=== PATIENT | female | born 1990 | race Caucasian/White ===

== ENCOUNTER 2021-02-10 05:56 | Inpatient (IN) | payer BC, SELFPAY ==
[2021-02-10] VITALS (51 sets, daily range): BP systolic 73–128; BP diastolic 49–115; PULSE 53–259; RESP 14–16; TEMP 36.2–36.8; O2SAT 100; BMI 29.1
--- NOTE | 2021-02-10 07:30 | LDADM ---
This patient, Sepideh Cruz, was admitted to Labor/Delivery/Recovery 109 on 02/10/21 at 05:56. Plans for labor, pain management and were discussed with patient. Patient/family oriented to hospital policies and general routines including ID bracelet, bed and alarms, visiting hours, pain management, procedures, bathroom and other care routines, personal items, smoking policy, room service/diet and guest tray routines, security routines, and visiting hours. Patient/Family are encouraged to report perceived risks to care and to ask questions if they do not understand what they are told or what they should do. See OBIX for further documentation.
[2021-02-10 07:36] LABS: Basophils Percent Auto 0.2 % (0.2-1.2); Eosinophils Percent Auto 0.2 % (0-4.4); Hematocrit 38.7 % (37.0-47.0); Immature Granulocyte Absolute 0.07 K/mm3 (0.00-0.031); Immature Granulocyte Percent A 0.8 % (0-0.5); Lymphocytes Absolute Auto 1.94 K/mm3 (0.9-3.2); Lymphocytes Percent Auto 21.2 % (18.3-44.2); Mean Corpuscular HGB Conc 33.6 g/dl (32-36); Mean Corpuscular Hemoglobin 30.4 pg (26-34); Mean Corpuscular Volume 90.4 fl (80-100); Mean Platelet Volume 8.5 fl (7.4-10.4); Monocytes Absolute Auto 0.9 K/mm3 (0.1-0.6); Monocytes Percent Auto 9.4 % (2.6-8.5); Neutrophils Absolute Auto 6.2 K/mm3 (1.3-6.7); Neutrophils Percent Auto 68.2 % (45.5-73.1); Platelet Count Result 220 k/mm3 (150-375); Red Blood Count 4.28 M/mm3 (4.2-5.4); Red Cell Distribution Width 13.3 % (11.5-14.5); White Blood Count 9.1 K/mm3 (4.5-10.0)
--- NOTE | 2021-02-10 08:03 | P.PNAN_ITS ---
Anes - Eval Pre Procedure Procedure: Labor epidural Date/Time: 02/10/21 08:03 Surgeon: Yudy Preop Diagnosis: Abd pain with contractions Pre Op Diagnosis: Induction of Labor Patient Data Age: 30 Gender: F Height: 5 ft 4 in Weight: 77 kg Last Vital Signs Pulse 79 02/10/21 07:45 BP 117/72 02/10/21 07:45 Allergies Allergy/AdvReac Type Severity Reaction Status Date / Time No Known Allergies Allergy Verified 01/22/21 12:38 Home Medications Medication Instructions Recorded Confirmed Type prenat.vits,tj,iaa-dbds-bqvnv 1 tablet PO DAILY 01/22/21 01/22/21 History [ #2] Laboratory Tests 02/10/21 02/10/21 07:08 07:08 WBC 9.1 K/mm3 K/mm3 (4.5-10.0) RBC 4.28 M/mm3 M/mm3 (4.2-5.4) Hgb 13.0 g/dL g/dL (12.0-15.0) Hct 38.7 % % (37.0-47.0) MCV 90.4 fl fl (80-100) MCH 30.4 pg pg (26-34) MCHC 33.6 g/dl g/dl (32-36) RDW 13.3 % % (11.5-14.5) Plt Count 220 k/mm3 k/mm3 (150-375) MPV 8.5 fl fl (7.4-10.4) Immature Gran % (Auto) 0.8 % H % (0-0.5) Neut % (Auto) 68.2 % % (45.5-73.1) Lymph % (Auto) 21.2 % % (18.3-44.2) [place] % (Auto) 9.4 % H % (2.6-8.5) Eos % (Auto) 0.2 % % (0-4.4) Baso % (Auto) 0.2 % % (0.2-1.2) Lymph # (Auto) 1.94 K/mm3 K/mm3 (0.9-3.2) [place] # (Auto) 0.9 K/mm3 H K/mm3 (0.1-0.6) Eos # (Auto) 0.0 K/mm3 K/mm3 (0-0.3) Baso # (Auto) 0.0 K/mm3 K/mm3 (0.0-0.1) Abs Immat Gran (auto) 0.07 K/mm3 H K/mm3 (0.00-0.031) Absolute Neuts (auto) 6.2 K/mm3 K/mm3 (1.3-6.7) Absolute Nucleated RBC 0.0 K/mm3 K/mm3 (0.0-0.012) Nucleated RBC % 0.0 % % (0.0-0.2) RPR Pending Patient hx anesthesia problems: none Family hx anesthesia problems: none [facility] Past Medical History Medical History Overweight (BMI 25.0-29.9) Family History Family History Other Unknown family medical history Social History Social History Smoking status: Never smoker Substance use: never Spiritual care concerns: No Exam Day of Procedure 02/10/21 08:03 Patient weight: overweight Airway: Mallampati scale class II Neurological: alert and oriented
[2021-02-10] MEDS: OXYTOCIN 30 UNITS/NS 500 ML 30 UNITS/500 ML BAG IV CONT (08:07)
[2021-02-10] MEDS: LACTATED RINGERS 1,000 ML 125 ML IV CONT ×2 (08:07→13:53)
--- NOTE | 2021-02-10 08:45 | WPDOBADMIT ---
Obstetrics - Admit Note Admission Note: record reviewed. Additions to the history and/or subsequent changes in the physical findings follow. 30 y/o at 39 weeks here for induction of labor. GBS neg. AVSS NST reactive TOCO: contraction irregular ABD soft, nontender, gravid, vertex EXT nontender Cervix 4/50/-2. AROM with clear fluid. Vertex. A: IUP at term with favorable cervix. P: Oxytocin. Anticipate .
--- NOTE | 2021-02-10 12:55 | PM.OBPNLAB ---
Pain Control Date/time seen: 02/10/21 3455 Comments: Feeling more pain. Would like epidural. Pelvic Exam Dilation (cm): 6 Effacement (%): 80 Contractions Contraction pattern: Regular Status status: Category l Assessment and Plan Comments: Continue labor.
[2021-02-10] MEDS: ONDANSETRON INJ 4 MG/2 ML VIAL IV PUSH (13:02)
--- NOTE | 2021-02-10 17:42 | PM.OBPRVD ---
OB - Delivery Note Procedure Delivery date: 02/10/21 Procedure: Induction of labor with Induction method: AROM and per pitocin protocol Delivery monitor: external uterine and internal FHT Route of delivery: Laceration Description: Periurethral and Perineal - 1st Degree Delivery repair: vicryl (3-0) Specimen: Yes (3-0) Quantitative Blood Loss (ml): 95 Anesthesia type: Epidural Disposition: PACU Complications: None Narrative: 30 y/o at 39 weeks gestation who presented to the hospital for induction of labor. Oxytocin was administered intravenously. Amniotomy was performed with return of clear fluid. She received an epidural for pain control. Her labor progressed and her cervix dilated completely. She pushed with good effort and delivered the infant's head to the perineum, followed by the body. The nose and mouth were bulb suctioned. After a delay, the cord was clamped and cut. The was handed off the field. Cord blood was collected. The placenta delivered spontaneously and was grossly normal in appearance. The usual 3 vessel cord was noted. A first degree midline perineal laceration, and bilateral periurethral lacerations were sustained. These were reapproximated using 3 0 Vicryl in interrupted figure of eight fashion. Excellent hemostasis resulted as did excellent reapproximation of the normal anatomy. Needle and instrument counts were correct. The patient was taken to recovery room in stable condition. The went to the nursery in stable condition. I was present and scrubbed for the entire delivery. [place] Baby Date of : 02/10/21 Time of : 17:18 Weeks of gestation at delivery: 39 Infant gender: Female Weight (pounds): 7 Weight (ounces): 4 presentation: vertex position: Right Occiput Anterior Placenta delivery description: Spontaneous and Normal Configuration cord vessel description: 3 Vessels and Delayed Cord Clamping score one minute: 9 score five minutes: 9
--- NOTE | 2021-02-10 17:52 | PM.OBDSVD ---
DS: Admitting Diagnosis Admitting Diagnosis Admitting Diagnosis: IUP at 39 weeks DS: Discharge Diagnosis Discharge Diagnosis (1) (normal spontaneous vaginal delivery): Code(s): O80 - Encounter for full-term uncomplicated delivery Status: Acute OB - DS: Summary OB Procedures : None OB Procedures Intrapartum: Spontaneous Vag Delivery OB Procedures: : None DS: Data Data Completed and Pending Labs on day of discharge: Labs from last 24 hours 02/10/21 02/10/21 02/10/21 11:22 07:08 07:08 WBC 9.1 RBC 4.28 Hgb 13.0 Hct 38.7 MCV 90.4 MCH 30.4 MCHC 33.6 RDW 13.3 Plt Count 220 MPV 8.5 Immature Gran % (Auto) 0.8 H Neut % (Auto) 68.2 Lymph % (Auto) 21.2 [place] % (Auto) 9.4 H Eos % (Auto) 0.2 Baso % (Auto) 0.2 Lymph # (Auto) 1.94 [place] # (Auto) 0.9 H Eos # (Auto) 0.0 Baso # (Auto) 0.0 Abs Immat Gran (auto) 0.07 H Absolute Neuts (auto) 6.2 Absolute Nucleated RBC 0.0 Nucleated RBC % 0.0 RPR Pending Blood Type O Positive Antibody Screen Negative Discharge Plan Discharge Attending physician on discharge: Wander Jimenes Consulting providers: Boris Alonso Discharging Clinician: Wander Jimenes Patient Disposition: Home, Self-Care Activity: pelvic rest Diet: regular Discharge Instructions: Education: Mom and Baby Guide Given to: Mother Follow-Up: Call your delivering provider's office for an appointment to be seen in: 6 Weeks Mom and baby should come to the [facility] for the follow-up appointment. Appointment Date/Time: February 14, 2021 at 11:00 am What to expect at your follow-up visit: Blood Pressure Check Physical Assessment Call [phone] if you are unable to keep your appointment time. BREAST CARE: * Wear a snug supportive bra. * For engorgement discomfort: Breast Feeding: * Apply warm moist washcloths * Express milk as needed to relieve engorgement * Wear loose clothing * For sore nipples: * Identify correct latch-on * Apply warm moist washcloths before and after nursing * Air dry nipples after nursing * May apply Lansinoh cream to nipples EPISIOTOMY/PERINEAL CARE: * Until bleeding stops, use your francis bottle after urinating * Change your pad frequently throughout the day * You may take sitz baths several times a day (fill your bathtub with warm water and soak for 20 minutes.) Do NOT bathe in the water * No tub baths until seen by your physician - You may shower ACTIVITY: * Rest as much as possible. * Do not exercise or lift anything heavier than your baby (such as laundry or other children.) * Avoid stairs or driving as much as possible. * Do not put anything into the vagina. No douching, tampons, or sexual activity until seen by physician. NOTIFY PHYSICIAN IF YOU HAVE ANY QUESTIONS OR IF ANY OF THE FOLLOWING SYMPTOMS OCCUR: * If your vaginal area becomes red, swollen, or more painful than what you have experienced in the hospital. * If your vaginal bleeding becomes foul smelling. * If your vaginal bleeding becomes more heavy than a period or if your bleeding changes from pink to bright red. However, you may pass an occasional walnut-sized clot once or twice for the first week . * If you experience a sharp, shooting pain in your calves. * If you discover a hard, reddened area on your breast or if you experience flu-like symptoms. DIET: * Eat regular, well-balanced meals. * Drink plenty of fluids daily. If , drink to thirst. Call or return if temperature above 100.4? F, increased abdominal pain, increased vaginal bleeding or any new problems. Patient Instructions: Vaginal Delivery (DC) Stand Alone Forms: General Discharge Information Follow-up/Referrals: Wander Jimenes MD [Physician] - 6 Weeks Discharg
[2021-02-10] MEDS: OXYTOCIN 30 UNITS/NS 500 ML 30 UNITS/500 ML BAG 125 UNITS IV CONT (18:00)
[2021-02-10] MEDS: IBUPROFEN 600 MG TABLET PO (19:16)
[2021-02-10] MEDS: BENZOCAINE 20% AER SPR (*SP) 56 GM CAN 1 SPRAY TOPICAL (19:16)
[2021-02-10] MEDS: WITCH HAZEL 40 PADS 1 PAD TOPICAL (19:16)
--- NOTE | 2021-02-10 19:50 | OBPPTRN ---
Patient transferred to post room #281 via wheelchair. Support person present. Oriented to unit, room, information board, rooming in, admission packet and security measures. Patient verbalizes understanding. with patient.
--- NOTE | 2021-02-10 23:45 | PC.NURSE ---
Pt complains of MCDONALD when sitting/standing and states it feels better when she lays flat on her back.
[2021-02-10] MEDS: ACETAMINOPHEN 325 MG TABLET 650 MG PO (23:46)
[2021-02-11 03:50] VITALS: BP 109/69; PULSE 67; RESP 14; TEMP 36.3; O2SAT 100
[2021-02-11] MEDS: IBUPROFEN 600 MG TABLET PO ×3 (03:54→19:58)
[2021-02-11 05:37] LABS: Hematocrit 33.2 % (37.0-47.0); Hemoglobin 11.1 g/dL (12.0-15.0)
[2021-02-11 08:00] VITALS: BP 131/53; PULSE 90; RESP 16; TEMP 37; O2SAT 99
--- NOTE | 2021-02-11 08:24 | WPDANLDPN2 ---
Anes-Prog Note L&D Date/Time: 02/11/21 08:24 Comfortable throughout: labor Neuraxial method: epidural Epidural/Spinal procedure site: clean & non-tender Neuro status: Neuro function grossly intact. Cardiovascular status: normal Respiratory status: normal Airway patency: baseline Mental status: baseline Post-Op hydration status: normal Vital Signs: Last Vital Signs Temp 36.3 C L 02/11/21 03:50 Pulse 67 02/11/21 03:50 Resp 14 02/11/21 03:50 BP 109/69 02/11/21 03:50 Pulse Ox 100 02/11/21 03:50 Pain score (VAS): none I/O: Intake & Output 02/10/21 02/11/21 02/11/21 23:59 07:59 15:59 Output Total 158 Balance -158 Patient feedback: Patient satisfied with anesthetic care.
[2021-02-11] MEDS: MULTIVIT/MIN/PREN/FOL AC/IRON TABLET 1 TAB PO (08:49)
[2021-02-11] MEDS: ACETAMINOPHEN 325 MG TABLET 650 MG PO ×3 (08:50→23:25)
[2021-02-11 11:07] LABS: Rapid Plasma Reagin Non-Reactive (NonReactive)
[2021-02-11 12:30] VITALS: BP 114/57; PULSE 65; RESP 16; TEMP 37; O2SAT 100
[2021-02-11 16:15] VITALS: BP 106/66; PULSE 69; RESP 20; TEMP 37; O2SAT 100
[2021-02-11 19:55] VITALS: BP 111/60; PULSE 64; RESP 16; TEMP 36.3; O2SAT 100
[2021-02-11] MEDS: DOCUSATE SODIUM 100 MG CAPSULE PO (23:25)
[2021-02-12] MEDS: IBUPROFEN 600 MG TABLET PO (04:14)
[2021-02-12 08:00] VITALS: BP 124/72; PULSE 64; PULSE 80; RESP 16; RESP 18; TEMP 37.1; O2SAT 100
--- NOTE | 2021-02-13 08:40 | WPDANESEPPF ---
Anes - Initial Pre Proc Eval Date/Time: 02/13/21 08:40 Surgeon: Wander Jimenes MD Pre Op Diagnosis: Induction of Labor Patient Data Age: 30 Gender: F Height: 5 ft 4 in Weight: 77 kg Last Vital Signs Temp 37.1 C 02/12/21 08:00 Pulse 80 02/12/21 08:00 Resp 18 02/12/21 08:00 BP 124/72 02/12/21 08:00 Pulse Ox 100 02/12/21 08:00 Allergies Allergy/AdvReac Type Severity Reaction Status Date / Time No Known Allergies Allergy Verified 01/22/21 12:38 Home Medications Medication Instructions Recorded Confirmed Type prenat.vits,tj,jtf-eycw-pgude 1 tablet PO DAILY 01/22/21 01/22/21 History ibuprofen 600 mg PO Q6H PRN #30 tablet 02/10/21 Rx Patient hx anesthesia problems: none Family hx anesthesia problems: none PMFSH Past Medical History Medical History Overweight (BMI 25.0-29.9) Family History Family History Other Unknown family medical history Social History Social History Smoking status: Never smoker Substance use: never Spiritual care concerns: No Anes - Eval Final PreProcedure Day of Procedure 02/13/21 08:40 Patient weight: overweight Heart: regular rate and rhythm Lungs: clear to auscultation Airway: Mallampati scale class II Neurological: alert and oriented ASA classification: II Anesthetic plan: proceed Other findings: will do blood patch Informed Consent: The patient's anesthetic plan and its attendant risks and benefits were discussed with the patient/family/POA. Questions were solicited and answers provided to the satisfaction of the patient/family/POA.
--- NOTE | 2021-02-13 08:41 | P.PCNANE_ITS ---
Anes - Epidural Blood Patch PN Date/Time: 02/13/21 08:41 Consent: I have discussed with the patient/family/POA, the rationale of a lumbar epidural autologous blood patch for the treatment of post-dural puncture headache (spinal headache), including associated potential risks, benefits, comp lications and side effects. I have also discussed more conservative treatment options such as intravenous hydration, caffeine and non-prescription analgesics. The patient/family/POA, understand(s) and wish(es) to proceed with epidural autologous blood patch as treatment for the patient's post-dural puncture headache. Time-Out: A pre-procedural Time-Out was completed immediately before starting the procedure and confirmed: Patient Identification, Site, Procedure, Patient Position and the Availability of Requisite Equipment. Epidural Insertion Note Patient position: sitting Skin prep: chlorhexidine Needle: 18 gauge Tuohy-Schliff Technique: loss of resistance Skin anesthesia: lidocaine 1% Observations: tolerated well and other (20 cc autologous blood from left ac in 3cc increments instilled sterile headache gone ) Complications: none
[2021-02-14 11:51] VITALS: BP 117/77; PULSE 72; RESP 18; TEMP 36.8; O2SAT 100
== END 2021-02-12 10:10 | disposition home or self-care (01) | DRG 807 ==
LOC: ANHLDR 17:53 → ANHOB2 02-11 06:52 → ANHLDR 02-14 12:28 → ANHOB2 02-14 12:28
PROVIDERS: Admitting Provider Obstetrics & Gynecology; Visit Provider Student in an Organized Health Care Education/Training Program
DX: O70.0 First degree perineal laceration during delivery (principal); Z37.0 Single live birth; Z3A.39 39 weeks gestation of pregnancy; O71.82 Other specified trauma to perineum and vulva
CPT/HCPCS: 36415; 85014; 85018; 85025; 86592; 86850; 86900; 86901; A9270; J2405; J2590; J2795; J7120

== ENCOUNTER 2021-02-13 07:30 | Outpatient (CLI) | payer BC, SELFPAY ==
[2021-02-13 07:44] VITALS: BP 123/79; PULSE 57
--- NOTE | 2021-02-13 07:45 | PC.NURSE ---
Pt arrived with c/o headache starting 02/11 mid day and gradually getting worse, states it is better when she lays flat. Has some upper back pain that may or may not be related. States she is light sensitive, tried medication and caffeine at home.
[2021-02-13 08:35] VITALS: BP 129/81; PULSE 62
--- NOTE | 2021-02-13 08:40 | PN_ITS ---
This report was moved to the correct visit, [id number] on 02/17/21. Original report was signed by Boris Alonso MD on 02/13/21 0841. Anesthesiology Progress Note Signed Anes - Initial Pre Proc Eval Date/Time: 02/13/21 08:40 Surgeon: Wander Jimenes MD Pre Op Diagnosis: Induction of Labor Patient Data Age: 30 Gender: F Height: 5 ft 4 in Weight: 77 kg Last Vital Signs Temp 37.1 C 02/12/21 08:00 Pulse 80 02/12/21 08:00 Resp 18 02/12/21 08:00 BP 124/72 02/12/21 08:00 Pulse Ox 100 02/12/21 08:00 Allergies Allergy/AdvReac Type Severity Reaction Status Date / Time No Known Allergies Allergy Verified 01/22/21 12:38 Home Medications Medication Instructions Recorded Confirmed Type prenat.vits,tj,tvd-beoj-fdbnq 1 tablet PO DAILY 01/22/21 01/22/21 History ibuprofen 600 mg PO Q6H PRN #30 tablet 02/10/21 Rx Patient hx anesthesia problems: none Family hx anesthesia problems: none PMFSH Past Medical History Medical History Overweight (BMI 25.0-29.9) Family History Family History Other Unknown family medical history Social History Social History Smoking status: Never smoker Substance use: never Spiritual care concerns: No Anes - Eval Final PreProcedure Day of Procedure 02/13/21 08:40 Patient weight: overweight Heart: regular rate and rhythm Lungs: clear to auscultation Airway: Mallampati scale class II Neurological: alert and oriented ASA classification: II Anesthetic plan: proceed Other findings: will do blood patch Informed Consent: The patient's anesthetic plan and its attendant risks and benefits were discussed with the patient/family/POA. Questions were solicited and answers provided to the satisfaction of the patient/family/POA. This dictation may have been done utilizing a voice recognition system. Attempts have been made to correct errors. However, there may be uncorrected grammatical, spelling, and recognition errors present. Report Initialized date/time: Boris Alonso MD 02/13/21840 Electronically signed by: Boris Alonso MD 02/13/21840 [facility]
--- NOTE | 2021-02-13 08:41 | MISC_ITS ---
This report was moved to the correct visit, [id number] on 02/17/21. Original report was signed by Boris Alonso MD on 02/13/21842. Anesthesia Procedure Note Signed Anes - Epidural Blood Patch PN Date/Time: 02/13/21 08:41 Consent: I have discussed with the patient/family/POA, the rationale of a lumbar epidural autologous blood patch for the treatment of post-dural puncture headache (spinal headache), including associated potential risks, benefits, complications and side effects. I have also discussed more conservative treatment options such as intravenous hydration, caffeine and non-prescription analgesics. The patient/family/POA, understand(s) and wish(es) to proceed with epidural autologous blood patch as treatment for the patient's post-dural puncture headache. Time-Out: A pre-procedural Time-Out was completed immediately before starting the procedure and confirmed: Patient Identification, Site, Procedure, Patient Position and the Availability of Requisite Equipment. Epidural Insertion Note Patient position: sitting Skin prep: chlorhexidine Needle: 18 gauge Tuohy-Schliff Technique: loss of resistance Skin anesthesia: lidocaine 1% Observations: tolerated well and other (20 cc autologous blood from left ac in 3cc increments instilled sterile headache gone ) Complications: none This dictation may have been done utilizing a voice recognition system. Attempts have been made to correct errors. However, there may be uncorrected grammatical, spelling, and recognition errors present. Report Initialized date/time: Boris Alonso MD 02/13/21842 Electronically signed by: Boris Alonso MD 02/13/21 0843 MTDD
[2021-02-13 08:45] VITALS: BP 118/70; PULSE 52
[2021-02-13 09:00] VITALS: BP 111/64; PULSE 58
[2021-02-13 09:15] VITALS: BP 122/79; PULSE 50
--- NOTE | 2021-02-13 09:41 | PC.NURSE ---
See Anesthesia note on account [id number] for 02/13/21 regarding blood patch.
== END 2021-02-13 09:45 | disposition home or self-care (01) ==
LOC: ANHOBOP 07:33 → ANHOBPP 07:33
PROVIDERS: Visit Provider Obstetrics & Gynecology
DX: O89.4 Spinal and epidural anesthesia-induced headache during the puerperium (principal)
CPT/HCPCS: 62273; 99199

== ENCOUNTER 2025-04-25 14:58 | Emergency (ER) | payer OTHER, SELFPAY ==
--- NOTE | 2025-04-25 14:59 | ED.URI ---
HPI - URI/Sore Throat General Chief Complaint: Upper Respiratory Infection Stated Complaint: Cough Time Seen by Provider: 04/25/25 14:59 Source: patient Mode of arrival: ambulatory Limitations: no limitations History of Present Illness HPI Narrative: Bruna is a 34-year-old female patient presenting to the clinic today with complaints of a sinus congestion and cough x11 days. She reports she started taking Augmentin yesterday and states that her symptoms have improved but she feels as though she has chest congestion with a productive cough. Sinus pressure has somewhat improved. Denies any chest pain or shortness of breath currently. Denies any fevers, chills, body aches. Has been taking mjkw-xug-dyvronq Mucinex, Tylenol, and ibuprofen Related Data Home Medications ?Medication ?Instructions ?Recorded ?Confirmed ?Last Taken ?Type escitalopram oxalate 20 mg tablet mg 04/25/25 Unknown History Allergies Allergy/AdvReac Type Severity Reaction Status Date / Time No Known Allergies Allergy Verified 04/25/25 15:00 Review of Systems Review of Systems: Pertinent positives per HPI. Patient denies any fever, chills, rash, headache, visual changes, dizziness, sore throat, shortness of breath, chest pain, palpitations, nausea, vomiting, diarrhea, constipation, abdominal pain, or any urinary issues. PMFSH Past Medical History Medical History Overweight (BMI 25.0-29.9) Family History Family History Other Unknown family medical history Social History Social History Smoking status: Never smoker Substance use: never Spiritual care concerns: No Comments At the time of my signature, I reviewed and agree with the nursing past medical, surgical, social, and family history. There is no relevant family history pertinent to the patient complaint. Exam Narrative: General: Well-developed, well nourished, in no apparent distress Head: Normocephalic, atraumatic Eyes: Pupils equally round and reactive to light bilaterally, EOM intact, sclera and conjunctive clear, no discharge, lids normal Ears: TMs intact and congested, ear canals clear, no drainage, grossly hearing normal. Nose: Nares patent, clear nasal discharge, moderate inflammation, maxillary sinus tenderness. Mouth: Oropharynx red without lesions or masses, good dentition, MMM. Neck: Supple, trachea midline, no enlargement of anterior or posterior cervical nodes, no thyroid masses or goiter palpable. Cardio: Regular rate and rhythm, s1 and s2 normal, no murmur appreciated. Resp: Clear to auscultation bilaterally anteriorly and posteriorly, no rhonchi, rales, wheezing or rubs Course Course Emergency Course: Portions of this record may have been created with voice recognition software. Level of Care: Express Care Visit Vital Signs Vital signs: Vital Signs Temperature 36.6 C 04/25/25 15:06 Pulse Rate 79 04/25/25 15:06 Respiratory Rate 18 04/25/25 15:06 Blood Pressure 127/72 04/25/25 15:06 Pulse Oximetry 100 04/25/25 15:06 Oxygen Delivery Room Air 04/25/25 15:06 Temperature 36.6 C 04/25/25 15:06 Pulse Rate 79 04/25/25 15:06 Respiratory Rate 18 04/25/25 15:06 Blood Pressure 127/72 04/25/25 15:06 Pulse Oximetry 100 04/25/25 15:06 Oxygen Delivery Room Air 04/25/25 15:06 Vital signs reviewed MDM - URI/Sore Throat MDM Narrative Medical decision making narrative: At the time of visit patient is resting comfortably on the exam table. Patient appears to be nontoxic. complaints of a sinus congestion and cough x11 days. She reports she started taking Augmentin yesterday and states that her symptoms have improved but she feels as though she has chest congestion with a productive cough. Sinus pressure has somewhat improved. Denies any chest pain or shortness of breath currently. Denies any fevers, chills, body aches. Has been taking fedw-woe-prkmgyn Mucinex, Tylenol, and ibuprofen. On exam patient has clear nasal drainage, moderate sinus/nasal congestion, tenderness to palpation over the maxilla. Lung sounds are clear. Productive wet cough. Plan: I suspect patient has sinusitis. Prescription for prednisone was sent into the pharmacy to help with the congestion. Supportive measures were discussed with the patient and they voiced understanding discharge instructions and agrees to treatment plan. Return precautions reviewed Differential Diagnosis Differential diagnosis: Likely upper respiratory infection, otitis media, sinusitis, viral infection, bronchitis, influenza and pharyngitis Discharge Plan Discharge Clinical Impression: Sinusitis Qualifiers: Sinusitis location: frontal Chronicity: acute Recurrence: non-recurrent Qualified Code(s): J01.10 - Acute frontal sinusitis, unspecified Patient Disposition: Home Condition: Stable Instructions: Antibiotic Form, Rhinosinusitis (ED) Additional Instructions: Continue Augmentin as prescribed Start prednisone as directed Increase fluids and stay well hydrated May take Tylenol or motrin as directed on bottle for pain/fever May use Flonase 1 spray in each nare daily May take OTC antihistamines such as Zyrtec or Claritin daily as directed on bottle May apply Vicks vapor rub to chest to open sinuses Sinus rinses for congestion Cepacol spray, cough drops, throat lozenges, warm tea with honey/lemon, gargle salt water to soothe throat BRAT diet for diarrhea Clear liquids x 24 hours then advance as tolerated for nausea/vomiting Go to the ED if you develop a worsening in your condition- high fever not controlled by Tylenol or Motrin, dehydration, weakness, lethargy, shortness of breath, or chest pain. Follow up with your PCP in 3-5 days if symptoms persist. Patient Language: Com[place]an Prescriptions: New prednisone 20 mg tablet 40 mg PO DAILY 5 Days Qty: 10 0RF No Action escitalopram oxalate 20 mg tablet ibuprofen 600 mg tablet 600 mg PO Q6H PRN (Reason: cramps) Qty: 30 0RF amoxicillin-pot clavulanate [Augmentin] 500-125 mg tablet 1 tablet PO Q12H Qty: 14 0RF Follow-up/Referrals: Lloyd,DO Yannick [Primary Care Provider] Time of Disposition: 15:12 Quality NIHSS Nursing Documentation ED NIHSS nursing documentation: reviewed/agree
--- OUTSIDE RECORDS SUMMARY | 2025-04-25 15:01 | XMS_ITS | Patient Health Record ---
Author Organization [facility] Address [address] [facility] [address] [place] [address] Care Team Providers Care Area Captain Name Role Phone Matilda Peralta Unavailable [phone] Reason For Referral No Information Medications Medication SIG (Take, Route, Frequency, Duration) Notes Start Date End Date Status Fluconazole 150 MG Tablet Oral Active Chlorhexidine Gluconate 0.12% Solution Mouth/Throat Active Estradiol 2 MG Tablet Oral Active Amoxicillin-Pot Clavulanate 875-125 MG Tablet Oral Active Cefdinir 300 MG Capsule Oral Active HYDROcodone-Acetaminophen 5-325 MG Tablet Oral Active Amoxicillin 500 MG Capsule Oral Active Social History Social History Additional Details Category Social Info Options Details Migrated Social History Migrated Social History Tobacco Years: Never smoker 06/22/2022 Plan Of Treatment No Information Insurance Providers Payer Name Payer Address Payer Phone Subscriber Number Group Number Insured Name Patient Relationship to Insured Coverage Start Date Coverage End Date [facility] [address] [place] [address] [id number] CHEL GARCIA Spouse - patient is the spouse of the insured
--- OUTSIDE RECORDS SUMMARY | 2025-04-25 15:01 | XMS_ITS | Clinical Summary ---
Author Organization [facility] Address [address] [place] [address] Care Team Providers Care Senior Gis Analyst Name Role Phone Unavailable Primary Care Provider Unavailabl e Source Comments [facility],non-owned Affiliates and Associated Physician Practices is amultiple site organization consisting of ambulatory clinics and hospital sitesin [place], [place], [place] and [place]. This disclosure is being madepursuant to the Care Everywhere program and may not contain all information available regarding this patient. Last updated 18.[facility] Allergies No known active allergies Medications * Be aware that medications may not be up to date on this document. Alwaysverify current medications with the patient. benzonatate (TESSALON) 200 MG capsule Take 1 capsule by mouth 3 times daily as needed for Cough 30 capsule 8 Active Additional Information Patient not taking.Reported on 06/09/2020 Vit-Fe Fumarate-FA ( VITAMIN PO) Active Active Problems Problem Noted Date Diagnosed Date Encounter for nuchal translucency testing 2017 Family History Relation Name Status Comments Father Alive Mother Alive Social History Tobacco Use Types Packs/Day Years Used Date Smoking Tobacco: Former Cigarettes Alcohol Use Standard Drinks/Week Comments Yes 0 (1 standard drink = 0.6 oz pur e alcohol) Comments Unknown Sex and Gender Information Value Date Recorded Sex Assigned at Not on file Legal Sex Female 7:44 AM UPPER TIER Gender Identity Not on file Sexual Orientation Not on file Occupation Industry Job Start Date Job End Date student Not on file Not on file Not on file Last Filed Vital Signs Vital Sign Reading Time Taken Comments Blood Pressure 128/80 06/09/2020 11:29 AM CDT Pulse 78 06/09/2020 11:29 AM CDT Temperature 36.7 C (98.1 F) 06/09/2020 11:29 AM CDT Respiratory Rate 16 06/09/2020 11:29 AM CDT Oxygen Saturation 98% 06/09/2020 11:29 AM CDT Inhaled Oxygen Concentration - - Weight 59 kg (130 lb) 06/09/2020 11:29 AM CDT Height 162.6 cm (5' 4) 06/09/2020 11:29 AM CDT Body Mass Index 22.31 06/09/2020 11:29 AM CDT Plan of Treatment Health Maintenance Due Date Last Done Comments HIV SCREENING 2006 HEPATITIS C SCREENING 09/05/2009 DTAP/TDAP/TD VACCINES (1 - Tdap) 2010 HEPATITIS B VACCINE (1 of 3 - 19+ 3-dose series) 2010 HPV VACCINE (1 - 3-dose SCDM series) 2018 COVID-19 VACCINE (1 - 2023-2 5 season) 2024 DEPRESSION SCREENING 09/03/2024 INFLUENZA VACCINE (#1) 2025 ZOSTER VACCINE (1 of 2) 2041 HIB VACCINE Aged Out No longer eligi ble based on patient's age to complete this topic MENINGOCOCCAL (Group B) VACC INE SHARED DECISION-MAKING Aged Out No longer eligibl e based on patient's age to complete this topic MENINGOCOCCAL GROUPS A/C/Y/W VACCINE Aged Out No longer eligible b ased on patient's age to complete this topic PNEUMOCOCCAL VACCINE Aged Out No long er eligible based on patient's age to complete this topic Insurance MEDICA[place] [facility] Address: [address] [place] [address]
[2025-04-25 15:06] VITALS: BP 127/72; PULSE 79; RESP 18; TEMP 36.6; O2SAT 100
== END 2025-04-25 15:16 | disposition home or self-care (01) ==
PROVIDERS: Emergency Provider Nurse Practitioner Family; PCP Student in an Organized Health Care Education/Training Program
DX: J01.10 Acute frontal sinusitis, unspecified (principal)
CPT/HCPCS: 99213; G0463

== ENCOUNTER 2025-07-13 14:37 | Observation (INO) | payer OTHER, SELFPAY ==
--- OUTSIDE RECORDS SUMMARY | 2025-07-13 14:45 | XMS_ITS | Clinical Summary ---
Author Organization [facility] Address [address] [place] [address] Care Team Providers Care Validation Architect Name Role Phone Yannick Desai Yanique ALMANZAR Primary Care Provider + Allergies No known active allergies Medications Cholecalciferol (VITAMIN D3) 25 MCG (1000 UT) Cap Take by mouth daily. Active B Complex Cap capsule Take 1 capsule by mouth daily. Active magnesium oxide (MAG-OX) 250 MG tablet Take 1 tablet (250 mg total) by mouth daily. Active escitalopram (LEXAPRO) 20 MG tablet Take 1 tablet (20 mg total) by mouth daily. 04/15/2024 Active fish oil (OMEGA-3 FATTY ACID) 1000 MG Cap capsule Take 1 capsule (1,000 mg total) by mouth 2 (two) times daily. Active Doxylamine Succinate, Sleep, (UNISOM OR) Take by mouth nightly. Active Active Problems Problem Noted Date Diagnosed Date ADHD (attention deficit hype ractivity disorder), combined type 01/04/2024 Encounters Date Type Department Care Team Description 04/25/2025 Scan [facility] Scanned, Doc Med Group from Last 3 Months Immunizations Immunization Administration Dates Next Due Dtap (Acel-Immune) 07/04/2018 Fluzone 6 Months+ Quad (0.5 mL Prefilled Syringe ) 07/30/2023,07/12/2021 Influenza (Generic) 08/05/2020 Influenza Adult (Generic) 08/05/2020 Tdap (Generic) 12/16/2020,09/19/2018 Family History Medical History Relation Comments Mental Health Brother No Known Problems Father Cancer Maternal Aunt Skin cancer Stroke Maternal Grandfather Arthritis Maternal Grandmother Hands COPD Maternal Grandmother Depression Maternal Grandmother Hypertension Maternal Grandmother Mental Health Maternal Grandmother Vision loss Maternal Grandmother Catarac Alcohol Abuse Mother Depression Mother Hypertension Mother Miscarriages / Stillbirths Mother Relation Status Comments Brother Father Maternal Aunt Maternal Grandfather Maternal Grandmother Mother Social History Tobacco Use Types Packs/Day Years Used Date Smoking Tobacco: Former Cigarettes 0.5 3 0 01/01/2015 - 01/01/2018 Smokeless Tobacco: Never Tobacco Cessation:Counseling Given: Not Answered Alcohol Use Standard Drinks/Week Comments Not Currently 0 (1 standard drink = 0.6 oz pur e alcohol) PHQ-2 Answer Date Recorded Patient Health Questionnaire-2 Score 0 08/19/2024 Comments No Sex and Gender Information Value Date Recorded Sex Assigned at Female 08/19/2024 11:31 AM HOSPICE ADMINISTRATOR Legal Sex Female 10:22 PM HOSPICE ADMINISTRATOR Gender Identity Female 08/19/2024 11:31 AM HOSPICE ADMINISTRATOR Sexual Orientation Not on file Occupation Industry Job Start Date Job End Date Not on file Not on file Not on file Not on file Last Filed Vital Signs Vital Sign Reading Time Taken Comments Blood Pressure 102/64 08/19/2024 11:31 AM HOSPICE ADMINISTRATOR Pulse 56 08/19/2024 11:31 AM HOSPICE ADMINISTRATOR Temperature 36.7 C (98.1 F) 08/19/2024 11:31 AM HOSPICE ADMINISTRATOR Respiratory Rate 16 08/19/2024 11:31 AM HOSPICE ADMINISTRATOR Oxygen Saturation 98% 08/19/2024 11:31 AM HOSPICE ADMINISTRATOR Inhaled Oxygen Concentration - - Weight 58.6 kg (129 lb 1.6 oz) 08/19/2024 11:31 AM HOSPICE ADMINISTRATOR Height 162.6 cm (5' 4) 08/19/2024 11:31 AM HOSPICE ADMINISTRATOR Body Mass Index 22.16 08/19/2024 11:31 AM HOSPICE ADMINISTRATOR Plan of Treatment Health Maintenance Due Date Last Done Comments Cervical Cancer Screening Pap Smear (Age 30 to 64) Every 3 Years 1991 Hepatitis B Vaccines (1 of 3 - 19+ 3-dose series) 2010 HPV Vaccines (1 - 3-dose SCDM series) 2018 Cervical Cancer Screening Pap with HPV Testing (Age 30 to 64) Every 5 Years 2021 Cervical Cancer Screening with HPV 2021 PHQ-2 (Physician [place]) 09/03/2024 08/19/2024 Influenza Adult (#1) 2025 07/30/2023, 07/12/2021, 08/05/2020, Additional history exists Annual Physical 08/19/2025 08/19/2024, 07/05, 07/12/2021 DTaP, Tdap and Td Vaccines (4 - Td or Tdap) 12/16/2030 12/16/2020, 09/19/2018, 07/04/2018 COVID-19 Vaccine (4 - season) 2112 10/01/2021, 04/10/2021, 03/19/2021 Postponed from 05/04/2025 (Going to Outside Clinic) Hepatitis C Completed 06/13/2022 Hepatitis A Vaccines Aged Out No long er eligible based on patient's age to complete this topic Meningococcal B Vaccine Aged Out No l onger eligible based on patient's age to complete this topic Meningococcal Vaccine Aged Out No marj tammy eligible based on patient's age to complete this topic Pneumococcal Vaccine: Pediatrics (0 to 5 Years) and At-Risk Patients (6 to 49 Years) Aged Out No longer eligible based on patient's age to complete this topic RSV Immunizations Under 20 Months Aged Out No longer eligible based on patient's age to complete this topic Procedures Procedure Name Priority Date/Time Associated Diagnosis Comments HEPATITIS C ANTIBODY Routine 06/13/2022 11:49 AM CDT Need for hepatitis C screening test from Last 3 Months or Most Recently Relevant to Health Maintenance Results * HEPATITIS C ANTIBODY (06/13/2022 11:49 AM CDT) HEPATITIS C AB NON-REACTI VE NON-REACT KD 06/13/2022 9:36 PM CDT [facility] Comment: ANTIBODIES TO HCV NOT DETECTED. DOES NOT EXCLUDE THE POSSIBILITY OF EXPOSURE TO HCV. 06/13/2022 11:4 9 AM CDT us Yannick Desai DO LABORATORY Final Re sult [facility] [address] [place] [id number], [id number] from Last 3 Months or Most Recently Relevant to Health Maintenance Insurance [facility] Care Teams Validation Architect Relationship Specialty Start Date End Date Yannick Desai DO [facility] [place] [address] PCP - General FAMILY PRACTICE 12/26/21
--- OUTSIDE RECORDS SUMMARY | 2025-07-13 14:45 | XMS_ITS | Clinical Summary ---
Author Organization [facility] Address [address] [place] [address] Care Team Providers Care Armored Car Driver Name Role Phone Unavailable Primary Care Provider Unavailabl e Source Comments [facility],non-owned Affiliates and Associated Physician Practices is amultiple site organization consisting of ambulatory clinics and hospital sitesin [place], [place], [place] and [place]. This disclosure is being madepursuant to the Care Everywhere program and may not contain all information available regarding this patient. Last updated 18.[facility] Allergies No known active allergies Medications * [...] on file Legal Sex Female 7:44 AM ASSOCIATE PROFESSOR OF CRIMINAL JUSTICE Gender Identity Not on file Sexual Orientation [...] VACCINE (1 - 3-dose SCDM series) 2018 DEPRESSION SCREENING 09/03/2024 COVID-19 VACCINE (1 - 2023-2 5 season) 2025 INFLUENZA VACCINE (#1) 2025 ZOSTER VACCINE (1 [...] [place] [facility] Address: [address] [place] [address]
--- OUTSIDE RECORDS SUMMARY | 2025-07-13 14:45 | XMS_ITS | Encounter Summary ---
Author Organization [facility] Address [address] [place] [address] Care Team Providers Care Corporate Health Consultant Name Role Phone Yannick Desai DO Primary Care Provider + Encounter Details Date Type Department Care Team (Late st Contact Info) Description 12/06/[address] [facility] Family & Internal Medicine [id number] [place] [address] Yannick Desai DO [address] [place] [address] [id number] Screening Question Social History Tobacco Use Types Packs/Day Years Used Date Smoking Tobacco: Former Cigarettes 0.5 3 0 01/01/2015 - 01/01/2018 Smokeless Tobacco: Never Alcohol Use Standard Drinks/Week Comments Yes 16.7 (1 standard drink = 0.6 oz pure alcohol) 4-5 drinks a week PHQ-2 Answer Date Recorded Patient Health Questionnaire-2 Score 0 07/30/2023 Comments No Sex and Gender Information Value Date Recorded Sex Assigned at Female 08/19/2024 11:31 AM CLEAT FEEDER Legal Sex Female 10:22 PM CLEAT FEEDER Gender Identity Female 08/19/2024 11:31 AM CLEAT FEEDER Sexual Orientation Not on file Occupation Industry Job Start Date Job End Date Not on file Not on file Not on file Not on file documented as of this encounter Plan of Treatment Not on file documented as of this encounter Visit Diagnoses Not on filedocumented in this encounter Additional Health Concerns Assessment Noted Time PHQ-9 Depression Total Score: 11 021 8:59 AM CLEAT FEEDER documented as of this encounter Care Teams Corporate Health Consultant Relationship Specialty Start Date End Date Yannick Desai DO [address] [place] [address] PCP - General FAMILY PRACTICE 12/26/21 documented as of this encounter
--- OUTSIDE RECORDS SUMMARY | 2025-07-13 14:45 | XMS_ITS | Encounter Summary ---
Author Organization [facility] Address [address] [place] [address] Care Team Providers Care Granulator Name Role Phone None, Provider Primary Care Provider Unavaila ble Yannick Desai DO Primary Care Provider + Encounter Details Date Type Department Care Team (Late st Contact Info) Description 10/02/2018 Abstract [facility] [address] [place] [address] , Generic Conversion, Social History Tobacco Use Types Packs/Day Years Used Date Smoking Tobacco: Never Assessed Comments Unknown Sex and Gender Information Value Date Recorded Sex Assigned at Female 08/19/2024 11:31 AM LARRIMAN HELPER Legal Sex Female 10:22 PM LARRIMAN HELPER Gender Identity Female 08/19/2024 11:31 AM LARRIMAN HELPER Sexual Orientation Not on file documented as of this encounter Plan of Treatment Not on file documented as of this encounter Visit Diagnoses Not on filedocumented in this encounter Additional Health Concerns Infection Onset Date Last Indicated Resolved Time COVID-19 Rule Out 05/23/2021 05/23/2021 05/23/2021 10:22 AM CDT documented as of this encounter Care Teams Granulator Relationship Specialty Start Date End Date None, Provider, PCP - General 05/23/21 12/25/21 Yannick Desai DO [address] [place] [id number] PCP - General FAMILY PRACTICE 12/26/21 documented as of this encounter
[2025-07-13 14:54] VITALS: BP 121/66; PULSE 67; PULSE 72; O2SAT 99
[2025-07-13 14:59] VITALS: PULSE 73; O2SAT 100
[2025-07-13 15:00] VITALS: BP 121/66; PULSE 67; RESP 16; TEMP 37.1; O2SAT 100
[2025-07-13 15:04] VITALS: PULSE 75; O2SAT 100
[2025-07-13] MEDS: DEXTROSE 5%/LACTATED RINGERS 1,000 ML 999 ML IV CONT (15:23)
[2025-07-13] MEDS: ONDANSETRON INJ 4 MG/2 ML VIAL IV PUSH (15:23)
[2025-07-13 15:29] LABS: Hematocrit 39.1 % (37.0-47.0); Hemoglobin 13.6 g/dL (12.0-15.0); Mean Corpuscular HGB Conc 34.8 g/dl (32-36); Mean Corpuscular Hemoglobin 31.6 pg (26-34); Mean Corpuscular Volume 90.9 fl (80-100); Platelet Count Result 245 k/mm3 (150-375); Red Blood Count 4.30 M/mm3 (4.2-5.4); White Blood Count 7.9 K/mm3 (4.5-10.0)
[2025-07-13 15:41] LABS: Alanine Aminotransferase 13 U/L (6-35); Albumin Level 4.3 g/dL (3.5-5.1); Alkaline Phosphatase 50 U/L (38-126); Anion Gap 5 mmol/L (4-12); Aspartate Amino Transferase 23 U/L (14-36); Bilirubin,Total 0.4 mg/dL (0.2-1.3); Blood Urea Nitrogen 10 mg/dL (7-17); Calcium 9.1 mg/dL (8.4-10.2); Carbon Dioxide 26 mmol/L (22-30); Chloride 103 mmol/L (98-107); Estimated Glomerular Filt Rate > 60; Glucose 86 mg/dL (65-110); Potassium 3.6 mmol/L (3.4-5.0); Sodium 134 mmol/L (137-145); Total Protein 7.4 g/dL (6.3-8.2)
[2025-07-13 16:12] LABS: Thyroid Stimulating Hormone 2.260 uIU/mL (0.465-4.680)
--- NOTE | 2025-07-13 16:57 | PC.NURSE ---
1516 - Dr. Ethel Tao notified of pts status and labs. Orders received to continue monitoring
--- NOTE | 2025-07-13 17:40 | PC.NURSE ---
1740 - Pt states she is feeling better than when she arrived. Pt is up eating and drinking.
--- NOTE | 2025-07-13 19:37 | PC.NURSE ---
Pt discharged with instructions to keep next scheduled appointment and when to return to the unit, pt verbalizes understanding.
--- NOTE | 2025-07-15 06:29 | PM.OBTRLD ---
OB - Triage/Final Diagnosis Visit Information Comments/Additional reasons for admission: I have assessed the risk for this patient, Sepideh Cruz, and determined that she would benefit from observation care. Evaluation Laboratory results: Laboratory Tests 07/13/25 14:52 WBC 7.9 RBC 4.30 Hgb 13.6 Hct 39.1 MCV 90.9 MCH 31.6 MCHC 34.8 RDW 13.2 Plt Count 245 MPV 8.5 Sodium 134 L Potassium 3.6 Chloride 103 Carbon Dioxide 26 Anion Gap 5 BUN 10 Creatinine 0.64 L Estim Creat Clear Calc Not Reportable Estimated GFR > 60 Glucose 86 Calcium 9.1 Total Bilirubin 0.4 AST 23 ALT 13 Alkaline Phosphatase 50 Total Protein 7.4 Albumin 4.3 TSH 2.260
--- NOTE | 2025-07-15 16:18 | PM.OBTRLD ---
OB - Triage/Final Diagnosis Visit Information Reason for evaluation: threatened labor Comments/Additional reasons for admission: I have assessed the risk for this patient, Sepideh Cruz, and determined that she would benefit from observation care. Evaluation Laboratory results: Laboratory Tests 07/13/25 14:52 WBC 7.9 RBC 4.30 Hgb 13.6 Hct 39.1 MCV 90.9 MCH 31.6 MCHC 34.8 RDW 13.2 Plt Count 245 MPV 8.5 Sodium 134 L Potassium 3.6 Chloride 103 Carbon Dioxide 26 Anion Gap 5 BUN 10 Creatinine 0.64 L Estim Creat Clear Calc Not Reportable Estimated GFR > 60 Glucose 86 Calcium 9.1 Total Bilirubin 0.4 AST 23 ALT 13 Alkaline Phosphatase 50 Total Protein 7.4 Albumin 4.3 TSH 2.260
== END 2025-07-13 19:37 | disposition home or self-care (01) ==
PROVIDERS: Admitting Provider Obstetrics & Gynecology; PCP Student in an Organized Health Care Education/Training Program; Visit Provider Obstetrics & Gynecology
DX: O47.9 False labor, unspecified (principal)
CPT/HCPCS: 36415; 80053; 84443; 85027; 96361; 96374; G0378; G0379; J2405; J7121

== ENCOUNTER 2025-07-18 10:56 | Emergency (ER) | payer OTHER, SELFPAY ==
--- NOTE | ~2025-07-18 | US_ITS ---
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 Findings: Uterus anteverted 15.7 x 8.8 x 10.2 cm. There is a single live intrauterine corresponding to 11 weeks and 6 days, heart rate 161. The placenta is forming anteriorly with probable previa noted. The ovaries bilaterally were not identified IMPRESSION: Single live intrauterine . Placenta previa noted, no gross abruption. Follow-up recommended to assess Reviewed, dictated and finalized at location P. LATE LAYOUT WORKER
[2025-07-18 11:02] VITALS: BP 120/80; PULSE 96; RESP 18; TEMP 36.4; O2SAT 100
[2025-07-18] MEDS: ACETAMINOPHEN 500 MG TABLET 1000 MG PO (11:48)
--- NOTE | 2025-07-18 11:53 | ED.FEMALEGU ---
HPI - Female Genitourinary General Chief complaint: Vaginal Bleeding Stated complaint: vag bleeding 11 1/2 weeks Time Seen by Provider: 07/18/25 11:48 Source: patient and family Mode of arrival: ambulatory Limitations: no limitations History of Present Illness HPI Narrative: 34 years old white female came to the ED by private car with her complaining of vaginal bleed within 1 hour prior to arrival to the emergency room, fresh red bright blood, no blood clot, associated with suprapubic cramps. Patient is 3 para 2 0, 11 weeks , patient had intercourse this morning then went out for walk and developed the vaginal bleed. She denies any headache, lightheadedness, dizziness, fever, chills. Related Data Home Medications ?Medication ?Instructions ?Recorded ?Confirmed ?Last Taken ?Type escitalopram oxalate 20 mg tablet mg 04/25/25 Unknown History Allergies Allergy/AdvReac Type Severity Reaction Status Date / Time No Known Allergies Allergy Verified 04/25/25 15:00 Review of Systems Review of Systems: All systems reviewed & are unremarkable except as noted in HPI and below PMFSH Past Medical History Medical History Overweight (BMI 25.0-29.9) Family History Family History Other Unknown family medical history Social History Social History Smoking status: Never smoker Substance use: never Spiritual care concerns: No Exam Narrative: General appearance: Well-developed, well-nourished Skin: Normal color Head: Normocephalic, nontraumatic Eyes: Clear conjunctiva ENT: Oropharynx normal, ears normal, nose normal Neck: Supple, nontender Chest and respiratory: Airway patent, no respiratory distress, no accessory muscle use Heart: Regular rate/rhythm Abdomen: Soft, nontender, no organomegaly, quiet bowel sounds Vascular: Normal peripheral pulses, normal capillary refill. Musculoskeletal: Normal range of motion, nontender back Neurologic: Alert and oriented ?3, DIALYSIS EQUIPMENT TECHNICIAN is normal as tested, no gross motor deficit : External Female Exam: normal external appearance Speculum Exam - Vagina: normal appearance of the vagina Speculum Exam - Cervix: normal appearance of the cervix, Cervical os closed and Other cervical findings present (Light vaginal bleeding, no blood clots no localized tenderness) Course Vital Signs Vital signs: Vital Signs Temperature 36.4 C 07/18/25 11:02 Pulse Rate 96 07/18/25 11:02 Respiratory Rate 18 07/18/25 11:02 Blood Pressure 120/80 07/18/25 11:02 Pulse Oximetry 100 07/18/25 11:02 Oxygen Delivery Room Air 07/18/25 11:02 Temperature 36.4 C 07/18/25 11:02 Pulse Rate 96 07/18/25 11:02 Respiratory Rate 18 07/18/25 11:02 Blood Pressure 120/80 07/18/25 11:02 Pulse Oximetry 100 07/18/25 11:02 Oxygen Delivery Room Air 07/18/25 11:02 MDM - Female Genitourinary MDM Narrative Medical decision making narrative: Patient is 11 weeks , came with sudden onset of vaginal bleed status post intercourse Vital signs are stable Physical examination showing anxious patient otherwise within normal limit, pelvic exam showing slight vaginal bleed of fresh red bright blood, cervix closed, otherwise within normal limit Differential diagnosis includes threatened , partial complete . Blood workup today includes CBC, CMP, beta hCG quantitative showed no significant abnormality Pelvic ultrasound showedSingle live intrauterine . Placenta previa noted, no gross abruption. Follow-up recommended to assess Diagnosis: Threatened Recommendation bed rest, pelvic rest, work for 3 days encourage fluid intake. Follow-up with OBGYN. The pt was discharged to home.the pt,s condition upon discharge was fair,education was provided to the pt in reference to the final impression,discharge study results,treatment,prognosis and need for follow up . Differential Diagnosis Differential diagnosis: Likely other (As above) Medical Records Attestation: I reviewed the patient's medical records. Lab Data Attestation: I reviewed the patient's lab results. 07/18/25 11:54 07/18/25 11:54 Labs: Lab Results 07/18/25 Range/Units 11:54 WBC 10.5 H (4.5-10.0) K/mm3 RBC 4.25 (4.2-5.4) M/mm3 Hgb 13.6 (12.0-15.0) g/dL Hct 39.6 (37.0-47.0) % MCV 93.2 (80-100) fl MCH 32.0 (26-34) pg MCHC 34.3 (32-36) g/dl RDW 13.2 (11.5-14.5) % Plt Count 251 (150-375) k/mm3 MPV 8.6 (7.4-10.4) fl Immature Gran % (Auto) 0.5 (0-0.5) % Neut % (Auto) 72.7 (45.5-73.1) % Lymph % (Auto) 19.0 (18.3-44.2) % Beauregard % (Auto) 7.6 (2.6-8.5) % Eos % (Auto) 0.1 (0-4.4) % Baso % (Auto) 0.1 L (0.2-1.2) % Lymph # (Auto) 2.00 (0.9-3.2) K/mm3 Beauregard # (Auto) 0.8 H (0.1-0.6) K/mm3 Eos # (Auto) 0.0 (0-0.3) K/mm3 Baso # (Auto) 0.0 (0.0-0.1) K/mm3 Abs Immat Gran (auto) 0.05 H (0.00-0.031) K/mm3 Absolute Neuts (auto) 7.6 H (1.3-6.7) K/mm3 Absolute Nucleated RBC 0.000 (0.0-0.012) K/mm3 Nucleated RBC % 0.0 (0.0-0.2) % PT 13.0 (11.1-14.7) Seconds INR 1.0 APTT 28.1 (22.3-36.8) Seconds Sodium 134 L (137-145) mmol/L Potassium 3.7 (3.4-5.0) mmol/L Chloride 104 (98-107) mmol/L Carbon Dioxide 22 (22-30) mmol/L Anion Gap 8 (4-12) mmol/L BUN 10 (7-17) mg/dL Creatinine 0.56 L (0.7-1.0) mg/dL Estim Creat Clear Calc 104 ml/min Estimated GFR > 60 (59 - ) Glucose 88 (65-110) mg/dL Calcium 9.5 (8.4-10.2) mg/dL Total Bilirubin 0.6 (0.2-1.3) mg/dL AST 27 (14-36) U/L ALT 15 (6-35) U/L Alkaline Phosphatase 53 (38-126) U/L Total Protein 7.9 (6.3-8.2) g/dL Albumin 4.5 (3.5-5.1) g/dL Beta HCG, Quant 86926.00 mIU/ML Blood Type O Positive Antibody Screen Negative Screen Not Reportable Baby's Blood Type Not Reportable Baby's SCOT Not Reportable Doses of RhIg Required 0 Imaging Data Radiologist's impression: Impressions Obstetrics Ultrasound 07/18/25 14:15 IMPRESSION: Single live intrauterine . Placenta previa noted, no gross abruption. Follow-up recommended to assess Critical Care Time Critical Care Time Critical Care Time: No Discharge Plan Discharge Clinical Impression: , threatened Patient Disposition: Home Condition: Stable Instructions: Threatened Miscarriage (ED) Additional Instructions: Return if symptoms are worsening , call your family physician for appointment, take Tylenol as as needed for aches and pain, continue home medications. Bed rest Pelvic rest Patient Language: Marshallese Prescriptions: No Action escitalopram oxalate 20 mg tablet ibuprofen 600 mg tablet 600 mg PO Q6H PRN (Reason: cramps) Qty: 30 0RF amoxicillin-pot clavulanate [Augmentin] 500-125 mg tablet 1 tablet PO Q12H Qty: 14 0RF Follow-up/Referrals: Lloyd,DO Yannick [Primary Care Provider] Stand Alone Forms: Work/School Release IP
--- NOTE | 2025-07-18 11:58 | PC.NURSE ---
Attempted IV access at this time in Left arm, unsuccessful. Blood obtained. Pt requesting no IV right now.
[2025-07-18 12:01] LABS: Hematocrit 39.6 % (37.0-47.0); Hemoglobin 13.6 g/dL (12.0-15.0); Immature Granulocyte Percent A 0.5 % (0-0.5); Lymphocytes Absolute Auto 2.00 K/mm3 (0.9-3.2); Mean Corpuscular HGB Conc 34.3 g/dl (32-36); Mean Corpuscular Hemoglobin 32.0 pg (26-34); Mean Corpuscular Volume 93.2 fl (80-100); Nucleated Red Blood Cells Absolute Auto 0.000 K/mm3 (0.0-0.012); Nucleated Red Blood Cells Perc 0.0 % (0.0-0.2); Platelet Count Result 251 k/mm3 (150-375); Red Blood Count 4.25 M/mm3 (4.2-5.4); White Blood Count 10.5 K/mm3 (4.5-10.0)
[2025-07-18 12:11] LABS: INR 1.0; Partial Thromboplastin Time 28.1 Seconds (22.3-36.8); Prothrombin Time 13.0 Seconds (11.1-14.7)
[2025-07-18 12:18] LABS: Alanine Aminotransferase 15 U/L (6-35); Albumin Level 4.5 g/dL (3.5-5.1); Alkaline Phosphatase 53 U/L (38-126); Anion Gap 8 mmol/L (4-12); Aspartate Amino Transferase 27 U/L (14-36); Bilirubin,Total 0.6 mg/dL (0.2-1.3); Blood Urea Nitrogen 10 mg/dL (7-17); Calcium 9.5 mg/dL (8.4-10.2); Carbon Dioxide 22 mmol/L (22-30); Chloride 104 mmol/L (98-107); Estimated CRCL calculation 104 ml/min; Estimated Glomerular Filt Rate > 60; Glucose 88 mg/dL (65-110); Potassium 3.7 mmol/L (3.4-5.0); Sodium 134 mmol/L (137-145); Total Protein 7.9 g/dL (6.3-8.2)
--- NOTE | 2025-07-18 12:19 | PC.NURSE ---
FHT heard, machine read 155.
[2025-07-18 14:53] VITALS: BP 117/67; PULSE 64; RESP 20; TEMP 36.6; O2SAT 100
== END 2025-07-18 14:54 | disposition home or self-care (01) ==
PROVIDERS: Emergency Provider Emergency Medicine; PCP Student in an Organized Health Care Education/Training Program
DX: O20.0 Threatened abortion (principal); Z3A.11 11 weeks gestation of pregnancy
CPT/HCPCS: 36415; 76801; 76817; 80053; 84702; 85025; 85461; 85610; 85730; 86850; 86900; 86901; 99284; A9270

== ENCOUNTER 2025-08-29 08:51 | Emergency (ER) | payer OTHER, MEDICAID, SELFPAY ==
--- OUTSIDE RECORDS SUMMARY | 2025-08-29 08:53 | XMS_ITS | Encounter Summary ---
Author Organization [facility] Address [address] [place] [address] Care Team Providers Care Holter Technician Name Role Phone None, Provider Primary Care Provider Unavaila ble Yannick Desai DO Primary Care Provider + Encounter Details Date Type Department Care Team (Late st Contact Info) Description 10/02/2018 Abstract [facility] CONVERSION [address] [place] [address] , Generic Conversion, Social History Tobacco Use Types Packs/Day Years Used Date Smoking Tobacco: Never Assessed Comments Unknown Sex and Gender Information Value Date Recorded Sex Assigned at Female 08/19/2024 11:31 AM PACKAGE SORTER Legal Sex Female 10:22 PM PACKAGE SORTER Gender Identity Female 08/19/2024 11:31 AM PACKAGE SORTER Sexual Orientation Not on file documented as of this encounter Plan of Treatment Not on file documented as of this encounter Visit Diagnoses Not on filedocumented in this encounter Additional Health Concerns Infection Onset Date Last Indicated Resolved Time COVID-19 Rule Out 05/23/2021 05/23/2021 05/23/2021 10:22 AM CDT documented as of this encounter Care Teams Holter Technician Relationship Specialty Start Date End Date None, Provider, PCP - General 05/23/21 12/25/21 Yannick Desai DO [address] [place] [id number] PCP - General FAMILY PRACTICE 12/26/21 documented as of this encounter
--- OUTSIDE RECORDS SUMMARY | 2025-08-29 08:53 | XMS_ITS | Clinical Summary ---
Author Organization [facility] [employer] Address [address] [place] [address] Care Team Providers Care Rn Corrections Name Role Phone Unavailable Primary Care Provider Unavailabl e Source Comments [facility] [employer],non-owned Affiliates and Associated Physician Practices is amultiple site organization consisting of ambulatory clinics and hospital sitesin [place], [place], [place] and [place]. This disclosure is being madepursuant to the Care Everywhere program and may not contain all information available regarding this patient. Last updated 18.[facility] [employer] Allergies No known active allergies Medications * [...] on file Legal Sex Female 7:44 AM SPINNER FRAME Gender Identity Not on file Sexual Orientation [...] DEPRESSION SCREENING 09/03/2024 COVID-19 VACCINE (1 - 2024-2 6 season) 2025 INFLUENZA VACCINE (#1) 2025 ZOSTER VACCINE (1 of 2) 2041 Cervical Cancer Screening Discontinued PAP SMEAR Discontinued 07/04/2013 HIB VACCINE Aged Out No longer eligi ble based on patient's age to complete this topic MENINGOCOCCAL (Group B) VACC INE SHARED DECISION-MAKING Aged Out No longer eligibl e based on patient's age to complete this topic MENINGOCOCCAL GROUPS A/C/Y/W VACCINE Aged Out No longer eligible b ased on patient's age to complete this topic PAP with HPV Discontinued PNEUMOCOCCAL VACCINE Aged Out No long er eligible based on patient's age to complete this topic Insurance MEDICAID [place]EF[place] [facility]
--- OUTSIDE RECORDS SUMMARY | 2025-08-29 08:53 | XMS_ITS | Clinical Summary ---
Author Organization [facility] Address [address] [place] [address] Care Team Providers Care Television Script Writer Name Role Phone No, Pcp ORANGE PEEL OPERATOR Primary Care Provider Unavailabl e Social History Tobacco Use Types Packs/Day Years Used Date Smoking Tobacco: Never Assessed Comments Unknown Sex and Gender Information Value Date Recorded Sex Assigned at Not on file Legal Sex Female 12:40 PM EST Gender Identity Not on file Sexual Orientation Not on file Plan of Treatment Not on file Medical Devices Not on file Care Teams Television Script Writer Relationship Specialty Start Date End Date No, Pcp, ORANGE PEEL OPERATOR N/A Do not use PCP - General Family Medicine 07/14/20
--- OUTSIDE RECORDS SUMMARY | 2025-08-29 08:53 | XMS_ITS | Encounter Summary ---
Author Organization [facility] Address [address] [place] [address] Care Team Providers Care Floor Molder Name Role Phone Yannick Desai DO Primary Care Provider + Encounter Details Date Type Department Care Team (Late st Contact Info) Description 12/06/2023 Volancehart Message Enc [facility] Family & Internal Medicine [id number] [place] [address] Yannick Desai DO [address] [place] [address] [phone] Screening Question Social History Tobacco Use Types [...] Sex Assigned at Female 08/19/2024 11:31 AM TECHNOLOGY SALES SPECIALIST Legal Sex Female 10:22 PM TECHNOLOGY SALES SPECIALIST Gender Identity Female 08/19/2024 11:31 AM TECHNOLOGY SALES SPECIALIST Sexual Orientation Not on file Occupation Industry Job Start Date Job End Date Not on file Not on file Not on file Not on file documented as of this encounter Plan of Treatment Not on file documented as of this encounter Visit Diagnoses Not on filedocumented in this encounter Additional Health Concerns Assessment Noted Time PHQ-9 Depression Total Score: 11 021 8:59 AM TECHNOLOGY SALES SPECIALIST documented as of this encounter Care Teams Floor Molder Relationship Specialty Start Date End Date Yannick Desai DO [address] [place] [id number] PCP - General FAMILY PRACTICE 12/26/21 documented as of this encounter
--- OUTSIDE RECORDS SUMMARY | 2025-08-29 08:53 | XMS_ITS | Clinical Summary ---
Author Organization [facility] Address [address] [place] [id number] Care Team Providers Care Fine Sander Name Role Phone Yannick Desai Yanique ALMANZAR [...] Encounters Date Type Department Care Team Description 07/18/2025 Scan [facility] Scanned, Doc [...] Sex Assigned at Female 08/19/2024 11:31 AM EQUIPMENT SUPERINTENDENT Legal Sex Female 10:22 PM EQUIPMENT SUPERINTENDENT Gender Identity Female 08/19/2024 11:31 AM EQUIPMENT SUPERINTENDENT Sexual Orientation Not on file Occupation Industry Job Start Date Job End Date Not on file Not on file Not on file Not on file Last Filed Vital Signs Vital Sign Reading Time Taken Comments Blood Pressure 102/64 08/19/2024 11:31 AM EQUIPMENT SUPERINTENDENT Pulse 56 08/19/2024 11:31 AM EQUIPMENT SUPERINTENDENT Temperature 36.7 C (98.1 F) 08/19/2024 11:31 AM EQUIPMENT SUPERINTENDENT Respiratory Rate 16 08/19/2024 11:31 AM EQUIPMENT SUPERINTENDENT Oxygen Saturation 98% 08/19/2024 11:31 AM EQUIPMENT SUPERINTENDENT Inhaled Oxygen Concentration - - Weight 58.6 kg (129 lb 1.6 oz) 08/19/2024 11:31 AM EQUIPMENT SUPERINTENDENT Height 162.6 cm (5' 4) 08/19/2024 11:31 AM EQUIPMENT SUPERINTENDENT Body Mass Index 22.16 08/19/2024 11:31 AM EQUIPMENT SUPERINTENDENT Plan of Treatment Health Maintenance Due Date [...] Cancer Screening with HPV 2021 PHQ-2 (Physician [place]) 09/03/2024 08/19/2024 Influenza Adult (#1) 2025 07/30/2023, [...] LABORATORY Final Re sult [facility] [address] [place] [id number], [phone] from Last 3 Months or Most Recently Relevant to Health Maintenance Insurance [facility] Care Teams Fine Sander Relationship Specialty Start Date End Date Yannick Desai DO [facility] [place] [address] PCP - General FAMILY PRACTICE 12/26/21
--- NOTE | 2025-08-29 08:58 | ED_ITS ---
HPI - General Adult General Chief complaint: Upper Respiratory Infection Stated complaint: Sinus Infection Time Seen by Provider: 08/29/25 08:58 Source: patient Mode of arrival: ambulatory Limitations: no limitations History of Present Illness HPI narrative: 34-year-old female patient presents to [facility] with complaints of cold symptoms for the past week. Patient states that she is currently 17 weeks and has been taking some [id number] Mucinex for her cough. Patient denies fevers body aches or chills. Denies any ear pain or sore throat. Denies chest pain or shortness of breath. Patient states that she is mostly just had some sinus pressure, congestion, runny nose and a cough. Related Data Home Medications ?Medication ?Instructions ?Recorded ?Confirmed ?Last Taken ?Type escitalopram oxalate 20 mg tablet mg 04/25/25 Unknown History Allergies Allergy/AdvReac Type Severity Reaction Status Date / Time No Known Allergies Allergy Verified 08/29/25 09:11 Review of Systems Review of Systems: CONSTITUTIONAL: Denies fever, chills, or sweats. EYES: Denies visual changes, redness, or discharge. ENT: Positive rhinorrhea, congestion, denies sore throat, or otalgia. CARDIOVASCULAR: Denies chest pain, palpitations, or edema. RESPIRATORY: positive cough , denies dyspnea. GASTROINTESTINAL: Denies abdominal pain, nausea, vomiting, or diarrhea. GENITOURINARY: Denies dysuria or hematuria. SKIN: Denies rash or itching. MUSCULOSKELETAL: Denies back pain, joint pain, or myalgia. NEUROLOGIC: positive headache, denies numbness, or weakness. PSYCHIATRIC: Denies anxiety or depression. [facility]LY [facility], [facility] Past Medical History Medical History Overweight (BMI 25.0-29.9) Family History Family History Other Unknown family medical history Social History Social History Smoking status: Never smoker Substance use: never Spiritual care concerns: No Comments At the time of my signature I agree with nursing past medical history, surgical, social, and family history. There is no relevant family history pertinent to the presenting complaint. Exam Narrative: GENERAL: Well-appearing, well-nourished, and in no acute distress. HEAD: Normocephalic, atraumatic. EYES: PERRLA and EOMI. ENT: Nares with erythema edema noted bilaterally, no rhinorrhea or epistaxis. Mucous membranes moist. posterior pharynx with no erythema, tonsillar enlargement, exudates or lesions present. Mild postnasal drip noted. bilateral TMs are clear no erythema foreign bodies canal. NECK: Supple. No lymphadenopathy CHEST: Clear to auscultation. No respiratory distress. HEART: Regular rate and rhythm. No murmur heard. Normal peripheral pulses. ABDOMEN: Soft, nontender, nondistended, normal active bowel sounds. EXTREMITIES: Normal range of motion. No edema. SKIN: Warm, dry, no rash. NEURO: No focal deficits. Alert and oriented x3. Course Course Level of Care: Express Care Visit Vital Signs Vital signs: Vital Signs Temperature 36.3 C L 08/29/25 09:06 Pulse Rate 100 08/29/25 09:06 Respiratory Rate 18 08/29/25 09:06 Blood Pressure 121/51 L 08/29/25 09:06 Pulse Oximetry 100 08/29/25 09:06 Oxygen Delivery Room Air 08/29/25 09:06 Temperature 36.3 C L 08/29/25 09:06 Pulse Rate 100 08/29/25 09:06 Respiratory Rate 18 08/29/25 09:06 Blood Pressure 121/51 L 08/29/25 09:06 Pulse Oximetry 100 08/29/25 09:06 Oxygen Delivery Room Air 08/29/25 09:06 vital signs reviewed. MDM MDM Narrative Medical decision making narrative: Plan care for patients to test her today for COVID, influenza and strep To rule out need for antiviral or antibiotics. Given the patient had symptoms for only about a week most likely if these are negative will not consider antibiotics since this is not past 2 weeks. Discussed with patient we will provide her a list of safe [id number] medications she can help for her symptoms but this appears most likely viral since there is no fever or other concerning symptoms at this time. Differential Diagnosis Differential Diagnosis: Differential diagnosis: Allergic rhinitis, chronic sinusitis, tonsillitis, acute sinusitis, infectious mononucleosis, seasonal influenza, pertussis, diphtheria, meningococcal disease, viral syndrome, viral bronchitis, RSV, COVID- 19 Lab Data Labs: Lab Results 12/27/25 12/27/25 Range/Units 09:23 09:25 POC Influenza A Ag Negative (Negative) POC Influenza B Ag Negative (Negative) POC SARS CoV-2 Ag Negative (Negative) POC Grp A Strep Screen Negative (Negative) Critical Care Time Critical Care Time Critical Care Time: No Discharge Plan Discharge Clinical Impression: Viral URI with cough Patient Disposition: Home Condition: Stable Instructions: Antibiotic Form, Viral Syndrome (ED) Additional Instructions: Viral illness may last between 7-12days; antibiotic is NOT recommended at this time. Recommend antihistamine such as Benadryl at night time and Claritin/Zyrtec/Dianna during the day. please see states [id number] medication handout was provided to you today may want to also increase your vitamin C to help with your immune system at this time. Also, recommend symptomatic treatment includes: rest, fluids, and increase humidity of the air at home. Recommend Acetaminophen as directed in the bottle to reduce fever and/pain/headache. Avoid smoking/second-hand smoke. Limit visits to areas with large crowds. Please schedule a follow-up visit with your personal physician for further evaluation and treatment within 3-5days. Including recheck and discussion of your blood pressure. If your symptoms persist, change or worsen significantly before you can contact your personal physician then please, without delay, go to the emergency department for further evaluation. Patient Language: Divehi Prescriptions: No Action escitalopram oxalate 20 mg tablet ibuprofen 600 mg tablet 600 mg PO Q6H PRN (Reason: cramps) Qty: 30 0RF amoxicillin-pot clavulanate [Augmentin] 500-125 mg tablet 1 tablet PO Q12H Qty: 14 0RF Follow-up/Referrals: Lloyd,DO Yannick [Primary Care Provider] Time of Disposition: 09:33
[2025-08-29 09:06] VITALS: BP 121/51; PULSE 100; RESP 18; TEMP 36.3; O2SAT 100
[2025-08-29 09:24] LABS: EDSTREPNEGPOS1 Negative (Negative)
[2025-08-29 09:27] LABS: EDCOVIDSCREEN Negative (Negative); EDINFLUASCREEN Negative (Negative); EDINFLUBSCREEN Negative (Negative)
== END 2025-08-29 09:58 | disposition home or self-care (01) ==
PROVIDERS: Emergency Provider Nurse Practitioner Family; PCP Student in an Organized Health Care Education/Training Program
DX: O99.512 Diseases of the respiratory system complicating pregnancy, second trimester (principal); J06.9 Acute upper respiratory infection, unspecified; O99.891 Other specified diseases and conditions complicating pregnancy; R05.9 Cough, unspecified; Z3A.17 17 weeks gestation of pregnancy; Z20.822 Contact with and (suspected) exposure to COVID-19
CPT/HCPCS: 87081; 87426; 87804; 87880; 99213; G0463